=== PATIENT | female | born 1950 | race Caucasian/White ===

== ENCOUNTER 2016-11-15 11:03 | Emergency (ER) | payer BC ==
[2016-11-15 11:33] VITALS: TEMP 98.8
[2016-11-15 12:28] LABS: BASOPHILS % (AUTO) 0 % (0-3); EOSINOPHILS % (AUTO) 0 % (0-9); HEMATOCRIT 43 % (35-47); MEAN CORPUSCULAR HGB CONC 34.1 gm/dl (32.0-36.0); MEAN CORPUSCULAR VOLUME 88 fL (81-99); MONOCYTES % (AUTO) 6.6 % (0-12); NEUTROPHILS % (AUTO) 79.8 % (37-80)
[2016-11-15 12:45] LABS: CALCIUM 9.6 mg/dl (8.5-10.1); POTASSIUM 4.3 mMol/L (3.5-5.1)
[2016-11-15 17:10] VITALS: BP 131/59; PULSE 85; RESP 16; O2SAT 100
== END 2016-11-15 14:54 | disposition home or self-care (01) ==
LOC: ED 11:03
DX: K04.7 Periapical abscess without sinus (principal); R20.2 Paresthesia of skin; R42 Dizziness and giddiness
CPT/HCPCS: 36415; 80053; 85025; 99284

== ENCOUNTER 2017-12-11 13:03 | Emergency (ER) | payer MEDICARE, BC ==
[2017-12-11 13:22] VITALS: RESP 18; TEMP 98
[2017-12-11] MEDS ORDERED: KETOROLAC TROMETHAMINE 30 MG/ML SOL IM ONE (14:06)
[2017-12-11] MEDS ORDERED: KETOROLAC TROMETHAMINE 30 MG/ML SOL ONE (14:15)
[2017-12-11 14:27] VITALS: BP 134/77; O2SAT 99
[2017-12-11 14:28] VITALS: PULSE 91
== END 2017-12-11 15:17 | disposition home or self-care (01) | DRG 563 ==
LOC: ED 13:03
DX: S29.012A Strain of muscle and tendon of back wall of thorax, initial encounter (principal); S29.011A Strain of muscle and tendon of front wall of thorax, initial encounter
CPT/HCPCS: 71046; 99283; J1885

== ENCOUNTER 2019-02-04 11:11 | Emergency (ER) | payer MEDICARE, BC ==
[2019-02-04 11:28] VITALS: RESP 18; TEMP 97.2
[2019-02-04] MEDS: SODIUM CHLORIDE 0.9% 1000ML 1,000 ML IV ONE (12:29)
[2019-02-04 12:56] LABS: ALBUMIN 4.1 gm/dl (3.4-5.0); BILIRUBIN,TOTAL 0.7 mg/dl (0.2-1.0); CALCIUM 10.1 mg/dl (8.5-10.1); CREATININE 1.1 mg/dl (0.60-1.00); TOTAL PROTEIN 7.6 gm/dl (6.4-8.2)
[2019-02-04 13:01] LABS: APPEARANCE,URINE Clear; BILIRUBIN,URINE NEGATIVE (NEGATIVE); COLOR,URINE Yellow; GLUCOSE, URINE (UA) NEGATIVE (NEGATIVE); KETONES,URINE NEGATIVE (NEGATIVE); LEUKOCYTE ESTERASE ,URINE NEGATIVE (NEGATIVE); NITRATE,URINE NEGATIVE (NEGATIVE); OCCULT BLOOD,URINE NEGATIVE (NEG-TRACE); PH,URINE 5.5; UROBILINOGEN,URINE 0.2 (0.2-1.0 EU)
[2019-02-04 13:06] LABS: BACTERIA RARE (< 1+); CRYSTALS NEGATIVE (0-3 AVE/HPF); EPITHELIAL CELLS 0-2 (SQUAMOUS); RBC,URINE 0-2 (0-3AV/HPF); WBC,URINE 0-2 (0-5AV/HPF)
[2019-02-04 14:00] VITALS: BP 148/80; PULSE 96; O2SAT 100
== END 2019-02-04 13:58 | disposition home or self-care (01) | DRG 641 ==
LOC: ED 11:11
DX: E86.0 Dehydration (principal); R42 Dizziness and giddiness
CPT/HCPCS: 80053; 81001; 96365; 99282; 99283